=== PATIENT | female | born 1965 | race Caucasian/White ===

== ENCOUNTER → 2020-07-12 | Outpatient (CLI) | payer OTHER ==
[2015-02-22 12:34] VITALS: BP 118/56
--- NOTE | 2020-07-12 14:44 | RAD ---
EXAM: 2 Views Right Shoulder DATE: 07/12/2020 12:00 AM INDICATION: Reason: RIGHT SHOULDER PAIN AND LROM / Spl. Instructions: / History: COMPARISON: No Prior FINDINGS: There is no evidence for acute fracture or dislocation. AC joint is congruent. AC joint degenerative changes are seen. Glenoid rim osteophytes are also seen. Humeral head is not high riding. Sclerotic focus right humeral head likely bone island. IMPRESSION: 1. No acute fracture or dislocation. 2. Mild AC and glenohumeral joint degenerative change. Electronically signed by: Roshan Tolbert MD (07/12/2020 2:41 PM) ANGIE
--- NOTE | 2020-07-12 14:45 | RAD ---
EXAM: 2 views left knee DATE: 07/12/2020 12:00 AM INDICATION: Reason: PAIN / Spl. Instructions: / History: COMPARISON: No Prior FINDINGS: No evidence of acute fracture or dislocation. Decreased bone mineral density. Atherosclerotic vascular calcifications are seen. Moderate left knee joint effusion. Subtle medial prominent osteophytes. Joint spaces are grossly preserved. IMPRESSION: Within the constraints of osteopenia, no evidence for acute fracture or dislocation. Moderate left knee joint effusion. If there is clinical concern for internal derangement, MRI would provide additional details. Electronically signed by: Roshan Tolbert MD (07/12/2020 2:42 PM) ANGIE
== END | disposition home or self-care (01) ==
LOC: RAD 10:03
PROVIDERS: ATTEND Family Medicine
DX: M19.011 Primary osteoarthritis, right shoulder (principal); M25.462 Effusion, left knee; M85.88 Other specified disorders of bone density and structure, other site; I70.202 Unspecified atherosclerosis of native arteries of extremities, left leg; M81.8 Other osteoporosis without current pathological fracture
CPT/HCPCS: 73030; 73560

== ENCOUNTER 2021-07-07 15:36 | Emergency (ER) | payer OTHER ==
[~2021-07-07] VITALS: Ht 180.3 cm; Wt 87.0 kg
[2021-07-07 15:40] VITALS: BP 131/60
[2021-07-07] MEDS ORDERED: MORPHINE SULFATE 4 MG/ML INJ. IM ONE (16:00)
--- NOTE | 2021-07-07 17:07 | RAD ---
Exam: CT of lumbar spine without contrast INDICATION: Fall, pain TECHNIQUE: Sequential axial images through the lumbar spine obtained without IV contrast. Sagittal an d coronal reformatted images were reconstructed from the axial data and reviewed. Exposure: One or more of the following in the visualized dose reduction techniques were utilized for this examination: 1. Automated exposure control 2. Adjustment of the MA and/or KV according to patient size 3. Use of iterative of reconstructive technique Comparisons: None FINDINGS: Vertebral body heights are well-maintained. Minimal grade 1 anterolisthesis of L5 on S1. Bilateral pars interarticularis defect at L5. There is a mildly displaced fracture involving the left transverse process of L2 Multilevel spondylotic change in cervical spine with degenerative disc disease greatest at L2-3 L4, L 4-L5 and L5-S1. There are associated broad-based disc bulges at these levels as well as bilateral fac et arthropathy. There is at least moderate spinal canal stenosis at L4-L5 secondary to these findings . Visualized paraspinal soft tissues are unremarkable. IMPRESSION: 1. Acute-appearing mildly displaced fractures involving the left transverse process of L2. 2. Spondylotic change in lumbar spine as described above greatest at L4-L5. Electronically signed by: Erica Zuluaga MD (07/07/2021 5:05 PM) SUZANNE
--- NOTE | 2021-07-07 17:10 | RAD ---
Exam: CT left lower extremity without contrast INDICATION: Fall, pain TECHNIQUE: Sequential axial images through the left lower extremity obtained without IV contrast. Sag ittal and coronal reformatted images were reconstructed from the axial data and reviewed. Exposure: One or more of the following in the visualized dose reduction techniques were utilized for this examination: 1. Automated exposure control 2. Adjustment of the MA and/or KV according to patient size 3. Use of iterative of reconstructive technique Comparisons: None FINDINGS: Visualized intrapelvic structures are unremarkable. Bone mineralization is normal. No acute or healed fractures. Mild osteoarthritic change at the left hip joint. Mild pubic symphysis degenerative changes. Visualiz ed portion of the left sacroiliac joint is well maintained. Visualized soft tissues of the left lower extremity are unremarkable. IMPRESSION: No fracture identified at the left hip. Electronically signed by: Erica Zuluaga MD (07/07/2021 5:07 PM) SUZANNE
[2021-07-07] MEDS ORDERED: NAPR-514 PO (18:29)
[2021-07-07] MEDS ORDERED: CYCL10TA2 PO (18:29)
[2021-07-07] MEDS ORDERED: HYDR-2761 PO ×2 (18:29→18:32)
--- NOTE | 2021-07-07 18:33 | PHYS DOC ---
Past Medical History Past Medical History: Diabetes-Type II (JOSHTAWNYA Maurilio TRANSMISSION SUPERVISOR) Past Surgical History: Appendectomy, Additional Past Surgical Histo: Lt foot amputation, Lt arm (TAWNYA MORENO Maurilio TRANSMISSION SUPERVISOR) Smoking Status: Current Every Day Smoker Alcohol Use: None Drug Use: None (TAWNYA MORENO Maurilio TRANSMISSION SUPERVISOR) General Adult EDM: Chief Complaint: HIP PAIN HPI: HPI: Patient is a 55-year-old female with a history of diabetes type 2 who presents to the ED today complaining of 5 out of 10 low back pain/left hip pain, symptoms began a couple minutes prior to coming to the ED after she tripped on the door ledge and fell. Patient states she was carrying 35 pound cat food when she fell. Denies any loss of consciousness. Denies hitting her head on the ground. Reports pain worse on touching and laying on her left bottom. Denies any pain radiating to bilateral lower extremities. Denies any loss of bowel/bladder function. Describes the pain as sharp and constant. (TAWNYA MORENO TRANSMISSION SUPERVISOR) Review of Systems: Review of Systems: Constitutional: Denies fever or chills. [] GI: Denies abdominal pain, nausea, vomiting, bloody stools or diarrhea. [] : Denies dysuria. [] Musculoskeletal: Reports left low back pain/left hip pain Integument: Denies rash. [] Neurologic: Denies headache, focal weakness or sensory changes. [] Psychiatric: Denies depression or anxiety. [] (TAWNYA MORENO TRANSMISSION SUPERVISOR) Heart Score: C/O Chest Pain: N/A Risk Factors: Risk Factors: DM, Current or recent (<one month) smoker, HTN, HLP, family history of CAD, obesity. Risk Scores: Score 0 - 3: 2.5% MACE over next 6 weeks - Discharge Home Score 4 - 6: 20.3% MACE over next 6 weeks - Admit for Clinical Observation Score 7 - 10: 72.7% MACE over next 6 weeks - Early Invasive Strategies (TAWNYA MORENO TRANSMISSION SUPERVISOR) Current Medications: Current Medications Medications (Trade) Dose Ordered Sig/Stanley Start Time Stop Time Status Last Admin Dose Admin Morphine Sulfate (Morphine Sulfate) 4 mg 1X ONCE 07/07/21 16:00 07/07/21 16:02 DC 07/07/21 16:27 4 MG (TAWNYA MORENO TRANSMISSION SUPERVISOR) Allergies: Allergies: Allergies Coded Allergies Type Severity Reaction Last Updated Verified No Known Drug Allergies 02/22/15 No (TAWNYA MORENO TRANSMISSION SUPERVISOR) Physical Exam: PE: Constitutional: Well developed, well nourished, no acute distress, non-toxic appearance. [] Abdomen: Bowel sounds normal, soft, no tenderness, no masses, no pulsatile masses. [] Skin: Warm, dry, no erythema, no rash. [] Back: Diffuse paraspinal muscle tenderness to the left lumbar spine, mild midline tenderness to the lumbar spine, no CVA tenderness. [] Extremities: No tenderness, no cyanosis, no clubbing, ROM intact, no edema. [] Neurologic: Alert and oriented X 3, normal motor function, normal sensory function, no focal deficits noted. [] Psychologic: Affect normal, judgement normal, mood normal. [] (TAWNYA MORENO TRANSMISSION SUPERVISOR) Current Patient Data: Vital Signs: Vital Signs Date Time Temp Pulse Resp B/P (MAP) Pulse Ox O2 Delivery O2 Flow Rate FiO2 07/07/21 16:27 15 98 Room Air 07/07/21 15:40 98.8 77 131/60 (76) 98.8 (TAWNYA MORENO TRANSMISSION SUPERVISOR) EKG: EKG: [] (TAWNYA MORENO TRANSMISSION SUPERVISOR) Radiology/Procedures: Radiology/Procedures: PROCEDURE: CT LUMBAR SPINE WO CONTRAST Exam: CT of lumbar spine without contrast INDICATION: Fall, pain TECHNIQUE: Sequential axial images through the lumbar spine obtained without IV contrast. Sagittal and coronal reformatted images were reconstructed from the axial data and reviewed. Exposure: One or more of the following in the visualized dose reduction techniques were utilized for this examination: 1. Automated exposure control 2. Adjustment of the MA and/or KV according to patient size 3. Use of iterative of reconstructive technique Comparisons: None FINDINGS: Vertebral body heights are well-maintained. Minimal grade 1 anterolisthesis of L5 on S1. Bilateral pars interarticularis defect at L5. There is a mildly displaced fracture involving the left transverse process of L2 Multilevel spondylotic change in cervical spine with degenerative disc disease greatest at L2-3 L4, L4-L5 and L5-S1. There are associated broad-based disc bulges at these levels as well as bilateral facet arthropathy. There is at least moderate spinal canal stenosis at L4-L5 secondary to these findings. Visualized paraspinal soft tissues are unremarkable. IMPRESSION: 1. Acute-appearing mildly displaced fractures involving the left transverse process of L2. 2. Spondylotic change in lumbar spine as described above greatest at L4-L5. Electronically signed by: Erica Alas MD (07/07/2021 5:05 PM) [facility] DICTATED and SIGNED BY: ERICA ALAS MD DATE: 07/07/21 [id number] PROCEDURE: CT LOWER EXTREMITY WO LEFT Exam: CT left lower extremity without contrast INDICATION: Fall, pain TECHNIQUE: Sequential axial images through the left lower extremity obtained without IV contrast. Sagittal and coronal reformatted images were reconstructed from the axial data and reviewed. Exposure: One or more of the following in the visualized dose reduction techniques were utilized for this examination: 1. Automated exposure control 2. Adjustment of the MA and/or KV according to patient size 3. Use of iterative of reconstructive technique Comparisons: None FINDINGS: Visualized intrapelvic structures are unremarkable. Bone mineralization is normal. No acute or healed fractures. Mild osteoarthritic change at the left hip joint. Mild pubic symphysis degenerative changes. Visualized portion of the left sacroiliac joint is well maintained. Visualized soft tissues of the left lower extremity are unremarkable. IMPRESSION: No fracture identified at the left hip. Electronically signed by: Erica Alas MD (07/07/2021 5:07 PM) [facility] DICTATED and SIGNED BY: ERICA ALAS MD DATE: 07/07/21 [id number] (TAWNYA MORENO APRN) Course & Med Decision Making: Course & Med Decision Making Pertinent Labs and Imaging studies reviewed. (See chart for details) This is a 55-year-old female patient presented to the ED today with left hip/left low back pain after falling. Patient unable to ambulate after falling. Patient denies any loss of bowel/bladder function. Lumbar spine CT as well as left hip CT interpreted by radiologist were noted for acute-appearing mildly displaced fractures involving the left transverse process of L2. Spondylotic change in lumbar spine as described above greatest at L4-L5. No acute findings to the left hip. Spoke to Dacia ZAVALA for neurosurgery. She stated patient can be admitted to the hospital if she is unable to ambulate and needs pain management. Patient was given morphine. She stated she is not able to stay in the hospital she would do everything possible to stand up and walk. She states she has animals at home including 2 dogs, 6 kittens, and 4 adult cats. Patient was able to get up and walk. She was discharged home. Follow-up with PCP and neurosurgery next week (TAWNYA MORENO APRN) Dragon Disclaimer: Dragon Disclaimer: This electronic medical record was generated, in whole or in part, using a voice recognition dictation system. (TAWNYA MORENO APRN) Departure Departure Impression: Primary Impression: Lumbar transverse process fracture Qualified Codes: S32.009A - Unspecified fracture of unspecified lumbar vertebra, initial encounter for closed fracture Additional Impression: Fall from standing Qualified Codes: W19.XXXA - Unspecified fall, initial encounter Disposition: HOME / SELF CARE / HOMELESS Condition: STABLE Referrals: ETHAN LY (PCP) Follow-up in 1 to 2 weeks SHEY EDWARDS MD follow up in 1-2 weeks Patient Instructions: Lumbar Fracture Additional Instructions: You were evaluated in the emergency room after falling. You have T2 transverse process fracture. Please take the prescribed medications as needed for pain. Please follow-up with your primary care doctor or the provided neurosurgeon next week. Scripts Hydrocodone Bit/Acetaminophen (HYDROCODONE-APAP 5-325 ) 1 Tab Tablet 1 TAB PO PRN Q6HRS PRN for PAIN, #25 TAB 0 Refills Prov: TAWNYA MORENO APRN 07/07/21 Naproxen (NAPROXEN) 500 Mg Tablet 1 TAB PO BID for pain, #20 TAB 0 Refills Prov: TAWNYA MORENO APRN 07/07/21 Cyclobenzaprine Hcl (CYCLOBENZAPRINE HCL) 10 Mg Tablet 1 TAB PO TID, #30 TAB Prov: GERALDAnithaTAWNYA Maurilio MILLER 07/07/21 Attending Signature Attending Signature I have reviewed the PA/STORAGE MANAGEMENT CONSULTANT's note and plan of care. I was available for consultation as needed during the patient's visit in the emergency department. I agree with the clinical impression, plan, and disposition. (BETH MCKEON DO) TAWNYA MORENO APRN Jul 07, 2021 18:33 BETH MCKEON DO Jul 07, 2021 22:12
== END 2021-07-07 19:10 | disposition home or self-care (01) ==
LOC: ER 15:36
DX: S32.009A Unspecified fracture of unspecified lumbar vertebra, initial encounter for closed fracture (principal); E11.9 Type 2 diabetes mellitus without complications; F17.200 Nicotine dependence, unspecified, uncomplicated; W01.0XXA Fall on same level from slipping, tripping and stumbling without subsequent striking against object, initial encounter; Y93.89 Activity, other specified; Y92.89 Other specified places as the place of occurrence of the external cause; Y99.8 Other external cause status
CPT/HCPCS: 72131; 73700; 96372; 99285; J2270